=== PATIENT | male | born 1995 | race Caucasian/White ===

== ENCOUNTER 2017-08-22 22:17 | Emergency (ER) | payer MEDICAID ==
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
[2017-08-23] MEDS ORDERED: LORazepam 2 MG/ML INJ IVP ONE (00:49)
[2017-08-23 01:06] LABS: PLATELET COUNT 284 10^3/uL (150-400)
[2017-08-23] MEDS ORDERED: NS 1,000 ML IV ONE ×3 (01:12→02:37)
[2017-08-23 03:45] VITALS: BP 121/74; PULSE 110; RESP 18; TEMP 97.9; O2SAT 99
== END 2017-08-23 03:45 | disposition home or self-care (01) ==
DX: F10.129 Alcohol abuse with intoxication, unspecified (principal); J45.909 Unspecified asthma, uncomplicated; E86.9 Volume depletion, unspecified
CPT/HCPCS: 96374; J2060